=== PATIENT | male | born 1985 | race Caucasian/White ===

== ENCOUNTER 2018-01-28 10:51 | Emergency (ER) | payer SELFPAY ==
[2018-01-28 10:57] VITALS: BP 144/86; PULSE 75; RESP 14; TEMP 37.4; O2SAT 98
--- NOTE | 2018-01-28 11:28 | ED.GENADUL ---
Disposition Clinical Impression: Dental abscess Disposition: HOME Condition: Good Instructions: Dental Abscess (ED) Additional Instructions: Please take the antibiotic as directed. Please follow-up with the dentist as soon as possible. We will be contacting 1 to help set up an appointment for you. If you notice any worsening of your symptoms, or any new symptoms such as vomiting, diarrhea, fever, chills, shortness of breath, chest pain, numbness, weakness, or fainting , please return immediately to the emergency department for reevaluation. Please follow up with your primary care provider as soon as possible for reassessment and reevaluation. As always, it was a pleasure participating in your medical care today. Prescriptions: Acetaminophen [Tylenol Extra Strength] 1,000 mg PO Q6H 5 Days #60 tab Amoxicillin 875/Clav. 125 [Augmentin 875-125 Tablet] 1 each PO BID #20 tab Hydrocodone/Acetaminophen [[place] 7.5-325 Tablet] 1 each PO Q6H #10 tablet Ibuprofen [Motrin Ib] 600 mg PO Q6H 5 Days #60 tablet Medical Decision Making - Medical Decision Making This is a 32-year-old male who presents with signs and symptoms consistent with a dental abscess. He has poor dentition. He has not seen a dentist. Physical exam demonstrates no palpable abscess from the mouth, however ultrasound at the apices of the tooth demonstrate a fluid collection. The area was blocked, moderate anesthesia was achieved, 5 cc of purulent discharge was then removed with needle and syringe. The patient had improvement of his symptoms. He has been been given a dose of Augmentin here in the ED, will be given a prescription to go home with. Additionally we will set up for dental follow-up as he certainly needs this tooth removed for resolution of this abscess. We discussed red flags which to return including systemic symptoms and the patient understands. I have extensively reviewed the treatment plan and discharge instructions with the patient. I have addressed all patient concerns at this time. The patient was made aware of what symptoms to monitor for that would warrant a return to the emergency department. Discussed the plan with the patient, they demonstrate verbal understanding and agreement with our assessment and plan at this time. Time out was taken to identify the correct patient, procedure, and site. Risks and benefits were discussed with the patient and consent was obtained. Direct pressure was held over the area prior to the procedure to reduce painful injection. 8 cc?s of Lidocaine 1% and Bupivacaine 0.25% was instilled into the right upper dental area with a 27 gauge needle. Moderate analgesia was obtained. The patient tolerated the procedure. There were no complications. After anesthetization a separate needle was used slightly more distally, and 5 cc of purulent drainage were removed. Repeat limited bedside ultrasound post removal demonstrated notable improvement of fluid collection at the tooth apices. History of Present Illness - General Chief complaint: DentalOral Stated complaint: DENTAL Time Seen by Provider: 01/28/18 11:03 - History of Present Illness Initial comments: This is a 32-year-old male with no significant past medical history who presents for evaluation of dental pain. Patient states that he has had chronic pain in his right upper teeth for quite some time. His tooth broke a few months ago, and since then the pain has been increasing. He has been holding off to go see the dentist. Over the last week the pain has gotten notably worse, he has had mild swelling in his face, and worsening pain. He denies any reported fever, but does admit to occasional chills. He is able to eat and drink well without significant discomfort. He denies any vision change, severe headache, neck pain, drooling, chest pain shortness of breath vomiting diarrhea numbness or tingling or weakness. He denies any IV or illicit drug use. He does admit to tobacco abuse. He denies any previous surgeries. He denies any pertinent family history. - Related Data Acetaminophen [Pain Reliever] 500 mg PO DAILY PRN 01/28/18 Acetaminophen [Tylenol Extra Strength] 1,000 mg PO Q6H 5 Days #60 tab 01/28/18 Amoxicillin 875/Clav. 125 [Augmentin 875-125 Tablet] 1 each PO BID #20 tab 01/28/18 Hydrocodone/Acetaminophen [[place] 7.5-325 Tablet] 1 each PO Q6H #10 tablet 01/28/18 Ibuprofen 400 mg PO DAILY PRN 01/28/18 Ibuprofen [Motrin Ib] 600 mg PO Q6H 5 Days #60 tablet 01/28/18 Allergies Allergy/AdvReac Type Severity Reaction Status Date / Time No Known Allergies Allergy Unverified 01/28/18 11:00 Review of Systems Other: 10 point review of systems was performed, pertinent positives and negatives are noted in the history of present illness. General Exam - Other Other exam information: 1.Const: Well-nourished, Well-developed, appearing stated age 2.Eyes: PERRL, no conjunctival injection, and symmetrical lids. 3.ENT: Atraumatic external nose and ears. Moist MM. Neck: Symmetric, trachea midline, No thyromegaly. Poor dentition. No significant cervical lymphadenopathy. Tympanic membranes are normal, ear exam is normal. No significant trismus. No signs of peritonsillar abscess or tracheal deviation. Palpation of the periosteal region demonstrates no definitive abscess, however limited bedside ultrasound does show abscess at the apices of the fifth or sixth tooth. Palpation externally demonstrates some firmness over this area. Patient demonstrates normal eye movements with no pain with eye movements. No evidence of proptosis or pre-septal / periorbital edema. 4.CVS: +S1/S2, No murmurs or gallops. Peripheral pulses 2+ and equal in all extremities. Brisk capillary refill in all extremities. 5.RESP: Unlabored respiratory effort. Clear to auscultation bilaterally. No wheezes rales or rhonchi 6.GI: Soft, Nontender/Nondistended, No hepatosplenomegaly. No guarding or rebound. 7.MSK: Normocephalic/Atraumatic, Extremities w/o deformity or ttp No cyanosis or clubbing, Normal movement of all extremities 8.Skin: Warm, Dry. No rashes or lesions. 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 Sensation grossly intact, no focal neurologic deficits. 10.Psych: (AAO) x3. Appropriate mood and affect Course Vital Signs - 24 hr 01/28/18 10:57 Temperature 37.4 C Pulse 75 Respiratory 14 Rate Blood Pressure 144/86 Pulse Oximetry 98
--- NOTE | 2018-01-28 11:31 | ED.GENADUL_ITS ---
Disposition Clinical Impression: Dental abscess Disposition: HOME Condition: Good Instructions: Dental Abscess (ED) Additional Instructions: Please take the antibiotic as directed. Please follow-up with the dentist as soon as possible. We will be contacting 1 to help set up an appointment for you. If you notice any worsening of your symptoms, or any new symptoms such as vomiting, diarrhea, fever, chills, shortness of breath, chest pain, numbness, weakness, or fainting , please return immediately to the emergency department for reevaluation. Please follow up with your primary care provider as soon as possible for reassessment and reevaluation. As always, it was a pleasure participating in your medical care today. Prescriptions: Acetaminophen [Tylenol Extra Strength] 1,000 mg PO Q6H 5 Days #60 tab Amoxicillin 875/Clav. 125 [Augmentin 875-125 Tablet] 1 each PO BID #20 tab Hydrocodone/Acetaminophen [[place] 7.5-325 Tablet] 1 each PO Q6H #10 tablet Ibuprofen [Motrin Ib] 600 mg PO Q6H 5 Days #60 tablet Medical Decision Making - Medical Decision Making This is a 32-year-old male who presents with signs and symptoms consistent with a dental abscess. He has poor dentition. He has not seen a dentist. Physical exam demonstrates no palpable abscess from the mouth, however ultrasound at the apices of the tooth demonstrate a fluid collection. The area was blocked, moderate anesthesia was achieved, 5 cc of purulent discharge was then removed with needle and syringe. The patient had improvement of his symptoms. He has been been given a dose of Augmentin here in the ED, will be given a prescription to go home with. Additionally we will set up for dental follow-up as he certainly needs this tooth removed for resolution of this abscess. We discussed red flags which to return including systemic symptoms and the patient understands. I have extensively reviewed the treatment plan and discharge instructions with the patient. I have addressed all patient concerns at this time. The patient was made aware of what symptoms to monitor for that would warrant a return to the emergency department. Discussed the plan with the patient, they demonstrate verbal understanding and agreement with our assessment and plan at this time. Time out was taken to identify the correct patient, procedure, and site. Risks and benefits were discussed with the patient and consent was obtained. Direct pressure was held over the area prior to the procedure to reduce painful injection. 8 cc s of Lidocaine 1% and Bupivacaine 0.25% was instilled into the right upper dental area with a 27 gauge needle. Moderate analgesia was obtained. The patient tolerated the procedure. There were no complications. After anesthetization a separate needle was used slightly more distally, and 5 cc of purulent drainage were removed. Repeat limited bedside ultrasound post removal demonstrated notable improvement of fluid collection at the tooth apices. History of Present Illness - General Chief complaint: DentalOral Stated complaint: DENTAL Time Seen by Provider: 01/28/18 11:03 - History of Present Illness Initial comments: This is a 32-year-old male with no significant past medical history who presents for evaluation of dental pain. Patient states that he has had chronic pain in his right upper teeth for quite some time. His tooth broke a few months ago, and since then the pain has been increasing. He has been holding off to go see the dentist. Over the last week the pain has gotten notably worse, he has had mild swelling in his face, and worsening pain. He denies any reported fever, but does admit to occasional chills. He is able to eat and drink well without significant discomfort. He denies any vision change, severe headache, neck pain, drooling, chest pain shortness of breath vomiting diarrhea numbness or tingling or weakness. He denies any IV or illicit drug use. He does admit to tobacco abuse. He denies any previous surgeries. He denies any pertinent family history. - Related Data Acetaminophen [Pain Reliever] 500 mg PO DAILY PRN 01/28/18 Acetaminophen [Tylenol Extra Strength] 1,000 mg PO Q6H 5 Days #60 tab 01/28/18 Amoxicillin 875/Clav. 125 [Augmentin 875-125 Tablet] 1 each PO BID #20 tab 01/28 Hydrocodone/Acetaminophen [[place] 7.5-325 Tablet] 1 each PO Q6H #10 tablet Ibuprofen 400 mg PO DAILY PRN 01/28/18 Ibuprofen [Motrin Ib] 600 mg PO Q6H 5 Days #60 tablet 01/28/18 Allergies Allergy/AdvReac Type Severity Reaction Status Date / Time No Known Allergies Allergy Unverified 01/28/18 11:00 Review of Systems Other: 10 point review of systems was performed, pertinent positives and negatives are noted in the history of present illness. General Exam - Other Other exam information: 1.Const: Well-nourished, Well-developed, appearing stated age 2.Eyes: PERRL, no conjunctival injection, and symmetrical lids. 3.ENT: Atraumatic external nose and ears. Moist MM. Neck: Symmetric, trachea midline, No thyromegaly. Poor dentition. No significant cervical lymphadenopathy. Tympanic membranes are normal, ear exam is normal. No significant trismus. No signs of peritonsillar abscess or tracheal deviation. Palpation of the periosteal region demonstrates no definitive abscess, however limited bedside ultrasound does show abscess at the apices of the fifth or sixth tooth. Palpation externally demonstrates some firmness over this area. Patient demonstrates normal eye movements with no pain with eye movements. No evidence of proptosis or pre-septal / periorbital edema. 4.CVS: +S1/S2, No murmurs or gallops. Peripheral pulses 2+ and equal in all extremities. Brisk capillary refill in all extremities. 5.RESP: Unlabored respiratory effort. Clear to auscultation bilaterally. No wheezes rales or rhonchi 6.GI: Soft, Nontender/Nondistended, No hepatosplenomegaly. No guarding or rebound. 7.MSK: Normocephalic/Atraumatic, Extremities w/o deformity or ttp No cyanosis or clubbing, Normal movement of all extremities 8.Skin: Warm, Dry. No rashes or lesions. 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 Sensation grossly intact, no focal neurologic deficits. 10.Psych: (AAO) x3. Appropriate mood and affect Course Vital Signs - 24 hr 01/28/18 10:57 Temperature 37.4 C Pulse 75 Respiratory 14 Rate Blood Pressure 144/86 Pulse Oximetry 98
[2018-01-28 11:42] VITALS: BP 144/86; PULSE 75; RESP 14; TEMP 37.4; O2SAT 98
[2018-01-28] MEDS: Lidocaine 1% Multi-Dose 50 ML VIAL IJ (11:42)
[2018-01-28] MEDS: Amoxicillin 875/Clav. 125 TAB PO (11:42)
[2018-01-28] MEDS: Bupivacaine 0.25% Pres-Free 30 ML VIAL 10 ML IJ (11:42)
--- NOTE | 2018-01-29 10:30 | PDOC.ERCMPRO ---
Care Management Progress Note 01/29-Dr. Clements requested assistance with a dental f/u (patient requested [facility] in [place]) as soon as possible for dental abscess. Called [facility] in [place] and spoke with Sandy. Sandy stated she would call [place] to schedule appt. Sandy requested demographic and provider note to be faxed to them at [phone] for which it was.
--- NOTE | 2018-01-29 10:32 | CMPROGNOTE_ITS ---
Care Management Progress Note 01/29-Dr. Clements requested assistance with a dental f/u (patient requested [facility] in [place]) as soon as possible for dental abscess. Called [facility] in [place] and spoke with Sandy. Sandy stated she would call [place] to schedule appt. Sandy requested demographic and provider note to be faxed to them at [phone] for which it was.
== END 2018-01-28 11:48 | disposition home or self-care (01) ==
PROVIDERS: Emergency Provider Student in an Organized Health Care Education/Training Program
DX: K04.7 Periapical abscess without sinus (principal)
CPT/HCPCS: 41800

== ENCOUNTER 2022-03-13 14:52 | Emergency (ER) | payer MEDICAID, SELFPAY ==
[2022-03-13 14:58] VITALS: BP 151/84; PULSE 79; RESP 18; TEMP 36.8; O2SAT 98
--- NOTE | 2022-03-13 15:04 | ED.GENADUL_ITS ---
Discharge Plan Disposition Patient Disposition: HOME Condition: Stable Discharge Details Clinical Impression: Rash, Skin lesion Primary Care Provider: None,None ED Provider: Brenda Min Home Meds and New Rx's Prescriptions: New sulfamethoxazole-trimethoprim [Bactrim DS] 800-160 mg tablet 2 tab PO BID 7 Days Qty: 28 0RF prednisone 20 mg tablet See Rx Instructions .ROUTE .COMPLEX Qty: 18 0RF Rx Instructions: Take 3 tabs daily for 3 days, then 2 tabs daily for 3 days, then 1 tab daily for 3 days. Continued methadone 10 mg/mL Concentrate 60 mg PO DAILY AM Discharge Instructions Instructions: Acute Rash (ED) Additional Instructions: The source of your rash is unclear at this time. It could be secondary to a contact dermatitis which is an area of inflammation which can be in response to an irritant that came in contact with your skin. These areas can become secondarily infected due to scratching. A monkeypox test was obtained today and you will be notified regarding the results when they are available. Take Benadryl as needed and directed for itching. Prescriptions for antibiotics and steroids have been sent electronically to your pharmacy to take as directed until finished. Be sure to keep the areas covered when in contact with other people and at bedtime You have been placed on care management list to arrange for a follow-up appointment with a primary care doctor to establish care and for re-evaluation. Return immediately to the emergency department if you develop any worsening or new concerning symptoms. Discharge Data Discharge Physician: Brenda Min Medical Decision Making 36-year-old male presents with lesions to his arms and legs for the past few days. His vitals are within normal limits and he appears nontoxic. He denies IV drug use. He has crusted lesions noted to his bilateral distal upper extremities and right posterior lower extremity. They range in size from 4 mm to 5 cm. Some of the crusted lesions are open revealing granulation and fibrous tissue with some serosanguineous drainage. There is no significant pus drainage or surrounding erythema. Differential diagnosis includes MRSA, infected contact dermatitis, less likely peacocks. Discussed with patient and that I am unsure the etiology of his rash but as he has some pain with complaint of body aches and chills a few days ago, will cover with antibiotics. That he has some itching and may be associated contact dermatitis also cover with steroids. Monkeypox swabs were obtained. He was given a dose of Bactrim and prednisone here and prescriptions were sent electronically to his pharmacy. Patient placed on care management list to arrange for follow-up with a primary care doctor to establish care for reevaluation. Usual and customary return precautions given prior to discharge. Medical Records Medical records reviewed: Yes I reviewed the patient's medical records. HPI General Mode of arrival: ambulatory . Date/Time Provider Initiated Documentation: 03/13/22 14:56 . Limitations to Documentation: no limitations . Information obtained by: patient . HPI Narrative: Patient is a 36-year-old male who presents with lesions noted to his bilateral upper extremities and right lower extremity for the past 2 days. Patient states they initially started as small papules and blisters on his right wrist and then progressed to involve other areas on his body, has scabbed over and ruptured. He states he has picked areas and scabbed off. He states he is now having some pain and itching at the sites of lesions. 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 He has been applying some topical antibiotic ointment but otherwise has not tried any medications. He does admit to feeling feverish with body aches and chills a few days ago but this has improved. He denies any new soaps, lotions, detergents, pets or other new exposures. Related Data Home Medications Medication Instructions Recorded Confirmed methadone 10 mg/mL oral concentrate 60 mg PO DAILY AM 03/13/22 03/13/22 prednisone 20 mg tablet See Rx Instructions .Route 03/13/22 .COMPLEX #18 tabs sulfamethoxazole 800 2 tab PO BID 7 days #28 tabs 03/13/22 mg-trimethoprim 160 mg tablet (Bactrim DS) Previous Rx's Medication Instructions Recorded prednisone 20 mg tablet See Rx Instructions .Route 03/13/22 .COMPLEX #18 tabs sulfamethoxazole 800 2 tab PO BID 7 days #28 tabs 03/13/22 mg-trimethoprim 160 mg tablet (Bactrim DS) Allergies Allergy/AdvReac Type Severity Reaction Status Date / Time No Known Allergies Allergy Unverified 03/13/22 15:01 General Stated Complaint: Cellulitis SHYLA: 3 Review of Systems All systems reviewed & are unremarkable except as noted in HPI and below Constitutional Constitutional: Reports as per HPI, Denies chills and Denies fever(s) Eyes Eyes: Denies blurry vision ENT Ears, Nose, Mouth, and Throat: Denies dizziness, Denies sore throat and Denies throat swelling Cardiovascular Cardiovascular: Denies chest pain and Denies dyspnea Respiratory Respiratory: Denies cough and Denies dyspnea Gastrointestinal Gastrointestinal: Denies abdominal pain, Denies diarrhea and Denies vomiting Genitourinary Genitourinary: Denies hematuria and Denies dysuria Musculoskeletal Musculoskeletal: Denies back pain and Denies numbness Integumentary/Breasts Skin/Breast: Reports lesions and Reports rash Neurologic Neurologic: Denies dizziness, Denies localized weakness and Denies numbness Allergic/Immunologic Allergic/Immunologic: Denies throat swelling PFSH All Active Problems (Updated 03/13/22 @ 16:07 by Brenda Min DO) Rash (Acute) Skin lesion (Acute) Medical History (Updated 03/13/22 @ 16:07 by Brenda Min DO) Opiate use in remission, on methadone Surgical History (Updated 03/13/22 @ 16:00 by Brenda Min DO) No significant past surgical history Social History Smoking/Tobacco Use Status: Current every day Smoking risk assessment performed?: Yes Drug use: Never Do you feel safe in your relationship?: Yes Exam Const General: cooperative and no acute distress Orientation: alert, awake and oriented x3 HENMT Head: normal to inspection Mouth: oral mucosae normal Eyes General: appearance normal, both eyes and all related structures Neck Neck: normal visual inspection Resp Effort & Inspection: normal respiratory effort and able to speak in complete sentences Cardio Rate: regular rate Skin Other: Scattered areas of crusted lesions noted to the bilateral distal upper ex tremities and right posterior proximal lower extremity. The lesions range in size from 4mm to 5cm, some blisters open revealing yellow fibrous and granulation tissue below, others with yellow crusting and serosanginous drainage. There is no significant pus drainage or erythema around the lesions. Neuro General: patient alert, patient awake and patient oriented x3 Motor: muscle tone normal throughout Extrem General: normal to inspection and full ROM Psych Appearance: grossly normal Affect: normal affect Course Vital Signs Vital signs: Vital Signs Temperature 98.2 F 03/13/22 14:58 Pulse 79 03/13/22 14:58 Respiratory Rate 18 03/13/22 14:58 Blood Pressure 151/84 H 03/13/22 14:58 Pulse Oximetry 98 03/13/22 14:58 Temperature 98.2 F 03/13/22 14:58 Temperature Source Tympanic 03/13/22 14:58 Pulse 79 03/13/22 14:58 Respiratory Rate 18 03/13/22 14:58 Blood Pressure 151/84 H 03/13/22 14:58 Blood Pressure Position Sitting 03/13/22 14:58 Pulse Oximetry 98 03/13/22 14:58 Oxygen Delivery Method Room Air 03/13/22 14:58 Oxygen Flow Rate 0 03/13/22 14:58
[2022-03-13] MEDS: Sulfameth/Trimeth DS TAB 2 TAB PO (16:16)
[2022-03-13] MEDS: Sulfameth/Trimeth DS, 2 TABS/BTL 1 TAB PO (16:17)
[2022-03-13] MEDS: predniSONE 20 MG TAB 60 MG PO (16:20)
--- NOTE | 2022-03-13 18:09 | NUR.NOTE ---
Nursing Note: f/u to rash and establish care with a PCP within 2 wks p/Dr. Min
[2022-03-16 08:50] LABS: Result Not Detected
[2022-03-16 08:51] LABS: Result Not Detected
== END 2022-03-13 17:01 | disposition home or self-care (01) ==
PROVIDERS: Emergency Provider Physician Assistant
DX: L98.8 Other specified disorders of the skin and subcutaneous tissue (principal); F17.200 Nicotine dependence, unspecified, uncomplicated
CPT/HCPCS: 99283; 99284; J7512